=== PATIENT | female | born 1985 | race Caucasian/White ===

== ENCOUNTER 2019-07-02 19:04 | Emergency (ER) | payer BC ==
[2019-07-02] MEDS ORDERED: Sodium Chloride 0.9% 1,000 ML IV ONE (19:25)
[2019-07-02] MEDS ORDERED: Morphine 4 MG/ML Syringe IVPUSH ONE (19:47)
[2019-07-02] MEDS ORDERED: Ondansetron 4 MG/2 ML SDV IVPUSH ONE (19:48)
[2019-07-02] MEDS ORDERED: Morphine 4 MG/ML Syringe IM ONE (19:56)
[2019-07-02] MEDS ORDERED: Ondansetron 4 MG Tab.DIS PO ONE (19:57)
[2019-07-02 20:47] LABS: BLOOD UREA NITROGEN,BUN 8 mg/dL (7.0-18.0); CARBON DIOXIDE,CO2 25.5 mmol/L (21.0-32.0); CHLORIDE,CL 102 mmol/L (98-107); GLUCOSE RANDOM 95 mg/dL (74-106); POTASSIUM,K 3.8 mmol/L (3.5-5.1); SODIUM,NA 138 mmol/L (136-145)
--- NOTE | 2019-07-02 21:02 | EDM.PDOC ---
ED HPI GENERAL MEDICAL PROBLEM - General Chief Complaint: Abdominal Pain Stated Complaint: ABDOMINAL PAIN Time Seen by Provider: 07/02/19 19:12 Source of Information: Reports: Patient History Limitations: Reports: No Limitations - History of Present Illness INITIAL COMMENTS - FREE TEXT/NARRATIVE: 33-year-old female 5 para 3 AB 1 approximately 12 weeks presents the emergency room with chief complaint of upper abdominal pain go ongoing for the past 2 months. Patient's states that she has pain all the time not related to eating. The patient has had nausea and vomiting. Patient denies fever. Patient denies travel or cough. Duration: Week(s): (Past 8 weeks) Location: Reports: Abdomen Severity: Moderate Improves with: Reports: None Worsens with: Reports: None Associated Symptoms: Reports: No Other Symptoms, Nausea/Vomiting Right Abdominal Pain Score (Numeric/FACES): 10 - Related Data Allergies Allergy/AdvReac Type Severity Reaction Status Date / Time No Known Allergies Allergy Verified 07/02/19 19:14 Home Meds: Home Meds Vit No.129/Iron/FA [ One Daily Tablet] 1 tab PO DAILY 11/23/17 [History] Past Medical History HEENT History: Reports: None Cardiovascular History: Reports: None Respiratory History: Reports: None Gastrointestinal History: Reports: None Genitourinary History: Reports: None LOT ASSOCIATE History: Reports: , Other (See Below) Other LOT ASSOCIATE History: demise last year. Musculoskeletal History: Reports: None Psychiatric History: Reports: None Endocrine/Metabolic History: Reports: None Hematologic History: Reports: None Immunologic History: Reports: None Oncologic (Cancer) History: Reports: None Dermatologic History: Reports: None - Infectious Disease History Infectious Disease History: Reports: Chicken Pox - Past Surgical History Head Surgeries/Procedures: Reports: None HEENT Surgical History: Reports: Adenoidectomy, Myringotomy w Tube(s) Cardiovascular Surgical History: Reports: None Respiratory Surgical History: Reports: None GI Surgical History: Reports: None Female Surgical History: Reports: None Endocrine Surgical History: Reports: None Neurological Surgical History: Reports: None Musculoskeletal Surgical History: Reports: None Oncologic Surgical History: Reports: None Dermatological Surgical History: Reports: None Social & Family History - Family History HEENT: Reports: None Cardiac: Reports: None Respiratory: Reports: Asthma GI: Reports: None : Reports: None OBGYN: Reports: Fibroids, Musculoskeletal: Reports: None Neurological: Reports: None Psychiatric: Reports: None Endocrine/Metabolic: Reports: Hypothyroidism Hematologic: Reports: None Immunologic: Reports: None Dermatologic: Reports: None - Tobacco Use Smoking Status *Q: Never Smoker - Caffeine Use Caffeine Use: Reports: None - Recreational Drug Use Recreational Drug Use: No ED ROS GENERAL - Review of Systems Review Of Systems: See Below Constitutional: Reports: No Symptoms. Denies: Fever, Chills HEENT: Reports: No Symptoms. Denies: Contact Lenses, Eye Discharge, Eye Pain Respiratory: Reports: No Symptoms. Denies: Shortness of Breath, Cough, Sputum Cardiovascular: Reports: No Symptoms Endocrine: Reports: No Symptoms. Denies: Fatigue, High Glucose GI/Abdominal: Reports: No Symptoms. Denies: Abdominal Pain, Anorexia, Black Stool, Constipation, Diarrhea : Reports: No Symptoms. Denies: Discharge, Dysuria Musculoskeletal: Reports: No Symptoms. Denies: Neck Pain, Shoulder Pain Skin: Reports: No Symptoms. Denies: Cyanosis, Jaundice, Bruising Neurological: Reports: No Symptoms. Denies: Confusion, Dizziness Psychiatric: Reports: No Symptoms. Denies: Agitation, Anxiety, Confusion Hematologic/Lymphatic: Reports: No Symptoms. Denies: Anemia, Easy Bleeding Immunologic: Reports: No Symptoms. Denies: Anaphylaxis, Food Allergy, Grass Allergy ED EXAM, GI/ABD - Physical Exam Exam: See Below Text/Narrative:: This is a 33-year-old female 5 para 3 AB 1 who presents to the emergency room with a chief complaint of upper abdominal pain for the past 8 weeks On exam HEENT is normal Chest patient has normal S1-S2 Lungs are clear to auscultation throughout Abdomen Patient has epigastric tenderness. Patient has a questionable Tong sign. Patient has normal active bowel sounds. Patient has no rebound no guarding. Patient has no pain over the uterus. Patient has no flank tenderness or pain over the bladder. Patient appears to have biliary colic or gallbladder disease and will have ultrasounds of the gallbladder. Since the patient is 12 weeks will also have pelvic ultrasound to rule out any problems Exam Limited By: No Limitations General Appearance: Alert, WD/WN, No Apparent Distress Eyes: Bilateral: Normal Appearance Ears: Normal External Exam, Normal Canal, Hearing Grossly Normal, Normal TMs Nose: Normal Inspection, Normal Mucosa Throat/Mouth: Normal Inspection, Normal Lips, Normal Oropharynx Head: Atraumatic, Normocephalic Neck: Normal Inspection, Supple, Non-Tender Respiratory/Chest: No Respiratory Distress, Lungs Clear, Normal Breath Sounds, No Accessory Muscle Use Cardiovascular: Normal Peripheral Pulses, Regular Rate, Rhythm GI/Abdominal Exam: Normal Bowel Sounds, Soft, Tender (Epigastric tenderness). No: Abnormal Bowel Sounds, Hernia (She has a positive Tong sign) (Female) Exam: Deferred Rectal (Female) Exam: Deferred Back Exam: Normal Inspection Extremities: Normal Inspection, Normal Range of Motion Neurological: Alert, Oriented, CN II-XII Intact, Normal Cognition Psychiatric: Normal Affect, Normal Mood Skin Exam: Warm, Dry, Intact, Normal Color Lymphatic: No Adenopathy Course - Vital Signs Text/Narrative:: The emergency room course: This patient presents to the emergency room with epigastric pain that is been going on for the past 8 weeks. Patient has been followed up with her career consultant since she is 12 weeks they suggest that it is probably benign but to prompt come to the emergency room if she has the pain again. Patient presented with the pain today lasting for the past 4 hours. Pain is described as epigastric in nature and burning. Patient denies any pelvic pain or lower abdominal pain or any flank tenderness. Patient has no vaginal bleeding or discharge at this time. On exam patient had pain localized to the epigastric area only with a questionable historian. Patient was medicine at the time and the pain subsided. Patient was taken for ultrasound of the pelvis and gallbladder. The gallbladder ultrasound was completely normal. Patient's pelvic ultrasound shows an 11-week 4-day old fetus with no abnormality with a heart rate of 168 with good amniotic fluid. Reevaluation patient is pain-free at this time. Patient will be discharged home to follow-up with her career consultant with a diagnosis of gastritis probably secondary to . Patient instructed to follow-up with a primary care career consultant and take either Tums or Tylenol for pain Last Recorded V/S: Last Vital Signs Temp 97.8 F 07/02/19 19:14 Pulse 74 07/02/19 19:14 Resp 17 07/02/19 19:14 BP 121/91 H 07/02/19 19:14 Pulse Ox 100 07/02/19 19:14 - Orders/Labs/Meds Orders: Active Orders 24 hr Category Date Time Status CULTURE URINE [RM] Stat Lab 07/02/19 20:17 Received Labs: Laboratory Tests 07/02/19 07/02/19 07/02/19 Range/Units 20:17 20:17 20:17 WBC 7.22 (4.0-11.0) K/uL RBC 4.70 (4.30-5.90) M/uL Hgb 12.7 (12.0-16.0) g/dL Hct 39.2 (36.0-46.0) % MCV 83.4 (80.0-98.0) fL MCH 27.0 (27.0-32.0) pg MCHC 32.4 (31.0-37.0) g/dL RDW Std Deviation 40.1 (28.0-62.0) fl RDW Coeff of Giovany 13 (11.0-15.0) % Plt Count 149 L (150-400) K/uL MPV 9.50 (7.40-12.00) fL Neut % (Auto) 68.1 (48.0-80.0) % Lymph % (Auto) 26.2 (16.0-40.0) % [place] % (Auto) 4.4 (0.0-15.0) % Eos % (Auto) 1.2 (0.0-7.0) % Baso % (Auto) 0.1 (0.0-1.5) % Neut # (Auto) 4.9 (1.4-5.7) K/uL Lymph # (Auto) 1.9 (0.6-2.4) K/uL [place] # (Auto) 0.3 (0.0-0.8) K/uL Eos # (Auto) 0.1 (0.0-0.7) K/uL Baso # (Auto) 0.0 (0.0-0.1) K/uL Nucleated RBC % 0.0 /100WBC Nucleated RBCs # 0 K/uL Sodium 138 (136-145) mmol/L Potassium 3.8 (3.5-5.1) mmol/L Chloride 102 (98-107) mmol/L Carbon Dioxide 25.5 (21.0-32.0) mmol/L BUN 8 (7.0-18.0) mg/dL Creatinine 0.7 (0.6-1.0) mg/dL Est Cr Clr Drug Dosing 128.96 mL/min Estimated GFR (MDRD) > 60.0 ml/min Glucose 95 (74-106) mg/dL Calcium 8.9 (8.5-10.1) mg/dL Total Bilirubin 0.4 (0.2-1.0) mg/dL AST 17 (15-37) IU/L ALT 21 (14-63) IU/L Alkaline Phosphatase 61 (46-116) U/L Total Protein 7.1 (6.4-8.2) g/dL Albumin 3.6 (3.4-5.0) g/dL Globulin 3.5 (2.6-4.0) g/dL Albumin/Globulin Ratio 1.0 (0.9-1.6) Urine Color YELLOW Urine Appearance CLOUDY Urine pH 6.0 (5.0-8.0) Ur Specific [place] 1.015 (1.001-1.035) Urine Protein NEGATIVE (NEGATIVE) mg/dL Urine Glucose (UA) NEGATIVE (NEGATIVE) mg/dL Urine Ketones TRACE H (NEGATIVE) mg/dL Urine Occult Blood NEGATIVE (NEGATIVE) Urine Nitrite NEGATIVE (NEGATIVE) Urine Bilirubin NEGATIVE (NEGATIVE) Urine Urobilinogen 0.2 (<2.0) EU/dL Ur Leukocyte Esterase LARGE H (NEGATIVE) Urine RBC 0-2 (0-2/HPF) Urine WBC 15-20 (0-5/HPF) Ur Epithelial Cells MODERATE (NONE-FEW) Urine Bacteria 1+ H (NEGATIVE) Urine Mucus LIGHT (NONE-MOD) Meds: Medications Discontinued Medications Generic Name Dose Route Start Last Admin Trade Name Freq PRN Reason Stop Dose Admin Sodium Chloride 1,000 mls @ 1,000 mls/hr 07/02/19 19:25 07/02/19 21:22 Normal Saline IV 07/02/19 20:24 Not Given .Bolus ONE Morphine Sulfate 4 mg 07/02/19 19:47 07/02/19 20:25 Morphine IVPUSH 07/02/19 19:48 Not Given ONETIME ONE Morphine Sulfate 4 mg 07/02/19 19:56 07/02/19 20:06 Morphine IM 07/02/19 19:57 4 mg ONETIME ONE Administration Ondansetron HCl 4 mg 07/02/19 19:48 07/02/19 20:25 Zofran IVPUSH 07/02/19 19:49 Not Given ONETIME ONE Ondansetron HCl 4 mg 07/02/19 19:57 07/02/19 20:06 Zofran Odt PO 07/02/19 19:58 4 mg ONETIME ONE Administration Departure - Departure Time of Disposition: 21:29 Disposition: Home, Self-Care 01 Condition: Good Clinical Impression: Gastritis Qualifiers: Gastritis type: other gastritis Qualified Code(s): K29.00 - Acute gastritis without bleeding - Discharge Information Instructions: Gastritis, Adult, [id number] Referrals: Nicole Alvarez MD [Primary Care Provider] - Forms: ED Department Discharge Sepsis Event Note - Evaluation Sepsis Screening Result: No Definite Risk - Focused Exam Vital Signs: Vital Signs Temp Pulse Resp BP Pulse Ox 07/02/19 19:14 97.8 F 74 17 121/91 H 100 Date Exam was Performed: 07/02/19 Time Exam was Performed: 21:25
--- NOTE | 2019-07-02 21:04 | US ---
Limited abdominal ultrasound: Multiple real-time images of the upper right abdomen were obtained. Gallbladder shows no shadowing gallstones. No gallbladder wall thickening or biliary duct dilatation is seen. Right kidney shows no hydronephrosis or discrete mass. Right kidney has a length of 12.3 cm. No abnormality is identified within the liver. Normal hepatopedal flow is seen within the main portal vein. Pancreas shows partial obscuration from bowel gas. Visualized portions of the pancreas appear within normal limits. Impression: 1. No abnormality is identified on right upper quadrant abdominal ultrasound as described above. Diagnostic code #1 This report was dictated in MDT
--- NOTE | 2019-07-02 21:04 | US ---
1st trimester obstetrical ultrasound: Multiple real-time images were obtained transabdominally. Comparison: No previous study for current . Dates: Current ultrasound: KELLI 01/17/20, gestational age 11 weeks 4 days Single intrauterine gestation is seen. Small embryo is identified. Amniotic fluid volume is normal. No subchorionic hemorrhage is appreciated. Maternal ovaries are identified and appear within normal limits. [place]-rump length: 4.76 cm - 11 weeks 4 days Heart rate: 168 bpm Single intrauterine gestation. Dates as noted above. 2. No complicating process is identified by ultrasound. Diagnostic code #1 This report was dictated in MDT
[2019-07-02 21:45] VITALS: BP 115/62; PULSE 73
== END 2019-07-02 21:44 | disposition home or self-care (01) ==
LOC: MW.ED 19:04
DX: O99.611 Diseases of the digestive system complicating pregnancy, first trimester (principal); K29.00 Acute gastritis without bleeding; Z3A.12 12 weeks gestation of pregnancy
CPT/HCPCS: 36415; 76705; 76801; 80053; 81001; 85025; 87086; 96372; 99284; A9270; J2270; 99283

== ENCOUNTER 2020-01-09 17:37 | Inpatient (IN) | payer BC ==
[2020-01-09] MEDS ORDERED: Terbutaline 1 MG/ML SDV SUBCUT PRN (17:59)
[2020-01-09] MEDS ORDERED: Oxytocin/0.9 % Sodium Chloride 30 UNIT/500 ML BAG IV SCH ×2 (18:00→18:15)
[2020-01-09] MEDS ORDERED: Methylergonovine 0.2 MG/1 ML Amp IM PRN (18:03)
[2020-01-09] MEDS ORDERED: Misoprostol 200 MCG Tab PO PRN (18:03)
[2020-01-09] MEDS ORDERED: Water For Irrigation,Sterile 1,000 ML Container IRR PRN (18:03)
[2020-01-09] MEDS ORDERED: Carboprost Tromethamine 250 MCG/1 ML Amp IM PRN (18:03)
[2020-01-09] MEDS ORDERED: Ondansetron 4 MG/2 ML SDV IVPUSH PRN (18:03)
[2020-01-09] MEDS ORDERED: Nalbuphine 10 MG/1 ML Vial IVPUSH PRN (18:03)
[2020-01-09] MEDS ORDERED: Tranexamic Acid 1,000 MG in Sodium Chloride 0.9% 100 ML IV PRN (18:03)
[2020-01-09] MEDS ORDERED: Butorphanol 1 MG/ML SDV IVPUSH PRN (18:03)
[2020-01-09] MEDS ORDERED: Sodium Chloride 0.9% 10 ML Syringe FLUSH PRN (18:03)
[2020-01-09] MEDS ORDERED: Lidocaine 1% 50 ML MDV INJECT PRN (18:03)
[2020-01-09] MEDS ORDERED: Sodium Chloride 0.9% 10 ML SDV IV PRN (18:03)
[2020-01-09] MEDS ORDERED: Sodium Chloride 0.9% 2.5 ML Syringe FLUSH PRN (18:03)
[2020-01-09] MEDS ORDERED: Lactated Ringers 1,000 ML IV SCH (18:15)
[2020-01-09] MEDS ORDERED: Calcium Carbonate 500 MG Tab.Chew PO PRN (20:42)
[2020-01-10] MEDS: Misoprostol 25 MCG (1/4 of 100 MCG) Tab VAG PRN ×2 (00:14→04:28)
[2020-01-10] MEDS ORDERED: Ibuprofen 400 MG Tab PO PRN (10:33)
[2020-01-10] MEDS ORDERED: oxyCODONE 5 MG Tab PO PRN (10:33)
[2020-01-10] MEDS ORDERED: Lanolin 100% Cream 7 GM Tube TOP PRN (10:33)
[2020-01-10] MEDS ORDERED: Bisacodyl 10 MG Supp RECTAL PRN (10:33)
[2020-01-10] MEDS ORDERED: Acetaminophen 500 MG Tab PO PRN (10:33)
--- NOTE | 2020-01-10 10:37 | PCM.OPNOTE ---
- General Post-Op/Procedure Note Date of Surgery/Procedure: 01/10/20 Operative Procedure(s): /2nd MLL repaired Findings: Viable female APGARs 8, 9 weight 2900 gm. Spontaneous delivery intact placenta with 3V cord Pre Op Diagnosis: 39 week IUP. IUGR, AC <10%ile Post-Op Diagnosis: Same Anesthesia Technique: Local Primary Surgeon: Nicole Alvarez EBL in mLs: 300 Complications: none known Condition: Good
[2020-01-10] MEDS: Benzocaine/Menthol 20%-0.5% Spray 78 GM Cannister TOP PRN (10:48)
[2020-01-10] MEDS: Witch Hazel Medicated Pads 40/Jar TOP PRN (10:48)
[2020-01-10] MEDS: Acetaminophen 500 MG Tab PO PRN ×3 (10:49→23:08)
--- NOTE | 2020-01-10 13:47 | OR ---
SURGEON: Nicole Alvarez M.D. DATE OF PROCEDURE: 01/10/2020 PREOPERATIVE DIAGNOSES: 1. 39-1/7 weeks' intrauterine . 2. Intrauterine growth restriction with abdominal circumference measuring less than 10th percentile. POSTOPERATIVE DIAGNOSES: 1. 39-1/7 weeks' intrauterine . 2. Intrauterine growth restriction with abdominal circumference measuring less than 10th percentile. PROCEDURE: Spontaneous vaginal delivery. Second-degree midline laceration, repaired. PRIMARY SURGEON: Nicole Alvarez MD ANESTHESIA: Local. ESTIMATED BLOOD LOSS: 300 mL. COMPLICATIONS: None known. FINDINGS: Viable female. score of 8 at one minute, 9 at five minutes. Weight of 2900 g. Spontaneous delivery, intact placenta, 3-vessel cord. DISPOSITION: to nursery, mom in LDRP. PROCEDURE DETAILS: Rashmi is a 34-year-old, G5, P 3-0-1-3, at 39-1/7 weeks' gestational age who presented on the evening of for scheduled induction of labor due to growth restriction with abdominal circumference of fetus measuring less than 10th percentile. Initially, she was started on Pitocin, but she was only found to be 1 cm, 50% effaced, minus 3 station. heart tones were category 1. She did not become very uncomfortable throughout the evening hours. Therefore, shortly after 11, Pitocin was discontinued and was dosed with Cytotec to help with ripening. She received two doses of this. This she responded very nicely to. The following morning, she was found to be 2 cm, 70% effaced, minus 3 station with spontaneous rupture of membranes shortly after 6 a.m., clear fluid was noted. The patient continued to progress. Shortly after 9, she was found to be 5 to 6 cm and within the next hour progressed to complete with urge to push. I presented for delivery. The patient was placed in modified dorsal lithotomy position. She was prepped and draped in usual aseptic manner. Began pushing efforts, was able to deliver 's head atraumatically spontaneously, followed by anterior shoulder, posterior shoulder, remainder of body. Infant's oropharynx and nares were bulb suctioned. was handed off to her mother with attending nursing staff at the side. After a delay, cord was clamped x2 and cut. The cord arterial, cord venous, cord blood sampling obtained. Light pressure was applied while the placenta was delivered spontaneously intact. Vigorous fundal uterine massage was then applied while 30 units of Pitocin was delivered in 500 mL of IV fluid. Upon inspection of cervix, vaginal sidewall, and perineum, the patient has had fairly significant laceration. Therefore, there is a laceration along the right vaginal sidewall. Region was prepped with 10 mL of 1% lidocaine and repaired using 3-0 Vicryl in continuous running fashion. There was also a deeper tear where she usually tears along the midline along the levator muscle. The capsule was not entered, so the overlying tissue was reapproximated with two [id number] sutures. Hemostasis appeared evident. Repair was intact. The patient tolerated this well overall. She will remain in LDRP, to nursery. Sponge and instrument count was correct. GIBSON / DIANA /[id number]
[2020-01-10] MEDS: Ibuprofen 800 MG Tab PO PRN ×2 (15:00→21:22)
--- NOTE | 2020-01-10 20:05 | PCM.SN.2 ---
- Free Text/Narrative Note: Called by patient nurse that her right labia has been very swollen since delivery. Inferior right labia has hematoma measuring about 5cm x4cm at the site of labial laceration extending towards perineum. Has not significantly increased in size the past 5 hours. She has moderate tenderness but was able to ambulate and void. She reports usually has bad swelling after her deliveries due to previous OB trauma. Hematoma appears stable at this time, will apply ice pack overnight and monitor size closely. Repeat CBC in AM.
[2020-01-10] MEDS: Docusate Sodium 100 MG Cap PO PRN (21:22)
[2020-01-11] MEDS: Ibuprofen 800 MG Tab PO PRN ×2 (04:32→12:24)
[2020-01-11 09:32] VITALS: BP 119/56; PULSE 69
[2020-01-11] MEDS: Acetaminophen 500 MG Tab PO PRN ×2 (09:46→14:27)
[2020-01-11] MEDS: Docusate Sodium 100 MG Cap PO PRN (09:47)
--- NOTE | 2020-01-11 11:21 | PCM.PNPP ---
- General Info Date of Service: 01/11/20 Functional Status: Reports: Pain Controlled, Tolerating Diet, Ambulating, Urinating, Other (Right labia hematoma stable in size, reports pain improving. ) - Review of Systems General: Reports: No Symptoms HEENT: Reports: No Symptoms Pulmonary: Reports: No Symptoms Cardiovascular: Reports: No Symptoms Gastrointestinal: Reports: No Symptoms Genitourinary: Reports: No Symptoms Musculoskeletal: Reports: No Symptoms Skin: Reports: No Symptoms Neurological: Reports: No Symptoms Psychiatric: Reports: No Symptoms - Patient Data Vital Signs - Most Recent: Last Vital Signs Temp 36.4 C 01/11/20 08:00 Pulse 69 01/11/20 08:00 Resp 14 01/11/20 08:00 BP 119/56 L 01/11/20 08:00 Pulse Ox 96 01/11/20 08:00 Weight - Most Recent: 280 lb Lab Results - Last 24 Hours: Laboratory Results - last 24 hr 01/10/20 01/11/20 Range/Units 20:16 06:08 WBC 11.87 H (4.0-11.0) K/uL RBC 3.94 L (4.30-5.90) M/uL Hgb 10.8 L 9.8 L (12.0-16.0) g/dL Hct 33.6 L 30.5 L (36.0-46.0) % MCV 85.3 (80.0-98.0) fL MCH 27.4 (27.0-32.0) pg MCHC 32.1 (31.0-37.0) g/dL RDW Std Deviation 45.2 (28.0-62.0) fl RDW Coeff of Giovany 14 (11.0-15.0) % Plt Count 148 L (150-400) K/uL MPV 9.20 (7.40-12.00) fL Nucleated RBC % 0.0 /100WBC Nucleated RBCs # 0 K/uL Med Orders - Current: Current Medications Acetaminophen (Tylenol Extra Strength) 500 mg PO Q4H PRN PRN Reason: Pain Acetaminophen (Tylenol Extra Strength) 1,000 mg PO Q4H PRN PRN Reason: Pain Last Admin: 01/11/20 09:46 Dose: 1,000 mg Documented by: Benzocaine/Menthol (Dermoplast Pain Relief 20%-0.5% [place]) 78 gm TOP ASDIRECTED PRN PRN Reason: Perineal Comfort Measure Last Admin: 01/10/20 10:48 Dose: 1 can Documented by: Bisacodyl (Dulcolax) 10 mg RECTAL ONETIME PRN PRN Reason: Constipation Calcium Carbonate/Glycine (Tums) 1,000 mg PO Q2HR PRN PRN Reason: Indigestion Last Admin: 01/09/20 21:11 Dose: 1,000 mg Documented by: Carboprost Tromethamine (Hemabate Ds) 250 mcg IM ASDIRECTED PRN PRN Reason: Post Hemorrhage Docusate Sodium (Colace) 100 mg PO BID PRN PRN Reason: Constipation Last Admin: 01/11/20 09:47 Dose: 100 mg Documented by: Emollient Ointment (Lansinoh Hpa) 0 gm TOP ASDIRECTED PRN PRN Reason: Sore Nipples Last Admin: 01/11/20 09:47 Dose: 7 gm Documented by: Oxytocin/Sodium Chloride (Oxytocin 30 Unit/500 Ml-Ns) 30 unit in 500 mls @ 2 mls/hr IV TITRATE AGUSTÍN; Protocol Last Titration: 01/10/20 10:05 Dose: 999 munits/min, 999 mls/hr Documented by: Lactated Ringer's (Ringers, Lactated) 1,000 mls @ 150 mls/hr IV ASDIRECTED AGUSTÍN Last Admin: 01/09/20 18:25 Dose: 150 mls/hr Documented by: Oxytocin/Sodium Chloride (Oxytocin 30 Unit/500 Ml-Ns) 30 unit in 500 mls @ 999 mls/hr IV TITRATE AGUSTÍN Tranexamic Acid 1,000 mg/ (Sodium Chloride) 110 mls @ 660 mls/hr IV ONETIME PRN PRN Reason: Bleeding Ibuprofen (Motrin) 400 mg PO Q4H PRN PRN Reason: Pain Ibuprofen (Motrin) 800 mg PO Q6H PRN PRN Reason: Pain Last Admin: 01/11/20 04:32 Dose: 800 mg Documented by: Lidocaine HCl (Xylocaine 1%) 50 ml INJECT ONETIME PRN PRN Reason: Laceration repair Last Admin: 01/10/20 10:13 Dose: 50 ml Documented by: Methylergonovine Maleate (Methergine) 0.2 mg IM ASDIRECTED PRN PRN Reason: Post Hemorrhage Misoprostol (Cytotec) 200 mcg PO ONETIME PRN PRN Reason: Post Hemorrhage Ondansetron HCl (Zofran) 4 mg IVPUSH Q6H PRN PRN Reason: Nausea/Vomiting Oxycodone HCl (Oxycodone) 5 mg PO Q2H PRN PRN Reason: Pain Sodium Chloride (Saline Flush) 10 ml FLUSH ASDIRECTED PRN PRN Reason: Keep Vein Open Sodium Chloride (Saline Flush) 2.5 ml FLUSH ASDIRECTED PRN PRN Reason: Keep Vein Open Sodium Chloride (Normal Saline) 10 ml IV ASDIRECTED PRN PRN Reason: IV Use Sterile Water (Sterile Water For Irrigation) 1,000 ml IRR ASDIRECTED PRN PRN Reason: delivery Wittimmy Godwin (Tucks) 1 pad TOP ASDIRECTED PRN PRN Reason: comfort care Last Admin: 01/10/20 10:48 Dose: 1 tub Documented by: Discontinued Medications Butorphanol Tartrate (Stadol) 1 mg IVPUSH Q1H PRN PRN Reason: Pain Misoprostol (Cytotec) 25 mcg VAG Q4H PRN PRN Reason: Cervical Ripening Last Admin: 01/10/20 04:28 Dose: 25 mcg Documented by: Nalbuphine HCl (Nubain) 10 mg IVPUSH Q1H PRN PRN Reason: Pain (severe 7-10) Terbutaline Sulfate (Brethine) 0.25 mg SUBCUT ASDIRECTED PRN PRN Reason: Tacysystole - Infant Interaction Disposition, : [place] at Bedside Interaction: Holding Infant Feeding: Breastfed Infant; Nursed Well Support Person: - Recovery Exam Fundal Tone: Firm Fundal Level: 1 Fingerbreadths Below Umbilicus Fundal Placement: Midline Lochia Amount: Scant, Small Lochia Color: Rubra/Red Perineum Description: Intact, Minimal Bruising/Swelling Episiotomy/Laceration: Approximated Bladder Status: Voiding - Exam General: Alert, Oriented, Cooperative, No Acute Distress HEENT: Pupils Equal, Pupils Reactive Neck: Supple, Trachea Midline Lungs: Normal Respiratory Effort Extremities: Normal Inspection, Normal Range of Motion, Non-Tender, No Pedal Edema Skin: Warm, Dry, Intact Wound/Incisions: Other (Right labial hematoma stable in size, about 4x5cm, swelling extending to the perineum.) Neurological: No New Focal Deficit Psy/Mental Status: Alert, Normal Affect, Normal Mood - Problem List & Annotations (1) Vaginal hematoma Status: Acute Current Visit: Yes - Problem List Review Problem List Initiated/Reviewed/Updated: Yes - My Orders Last 24 Hours: My Active Orders 01/11/20 11:09 Ready for Discharge [RC] PER UNIT ROUTINE - Assessment Assessment:: 34yo PPD1 s/p with right labial hematoma. - Plan Plan:: - vital stable - Hematoma stable in size, pain is improving. Motrin and tylenol PRN - Hgb 11.5 on admission, 10.8/9.8 , decrease appropriate for - Stable for discharge home, reviewed to continue compression ice packs and sitz baths to help swelling. To call if increasing in size, bleeding or pain. Follow up in clinic next week.
[2020-01-11] MEDS: Witch Hazel Medicated Pads 40/Jar TOP PRN (14:26)
[2020-01-11] MEDS: Benzocaine/Menthol 20%-0.5% Spray 78 GM Cannister TOP PRN (14:27)
== END 2020-01-11 15:00 | disposition home or self-care (01) | DRG 560 ==
LOC: MW.OB 17:37 → OBSVTOIN 01-10 10:34 → MW.OB 01-10 15:11
PROVIDERS: ADMIT Obstetrics & Gynecology; ATTEND Obstetrics & Gynecology
PROC: 10E0XZZ Delivery of Products of Conception, External Approach (ICD-10-PCS; principal; 2020-01-10)
PROC: 0KQM0ZZ Repair Perineum Muscle, Open Approach (ICD-10-PCS; 2020-01-10)
DX: O36.5930 Maternal care for other known or suspected poor fetal growth, third trimester, not applicable or unspecified (principal); Z37.0 Single live birth; Z3A.39 39 weeks gestation of pregnancy; O70.1 Second degree perineal laceration during delivery; Z20.828 Contact with and (suspected) exposure to other viral communicable diseases
CPT/HCPCS: 36415; 59025; 59409; 82803; 85014; 85018; 85027; 86592; 86850; 86900; 86901; A9270-GY; J2001; J2590; J7120; U0002

== ENCOUNTER 2020-01-15 04:55 | Emergency (ER) | payer BC ==
--- NOTE | 2020-01-15 05:13 | EDM.PDOC ---
ED HPI GENERAL MEDICAL PROBLEM - General Chief Complaint: Lower Extremity Injury/Pain Stated Complaint: LT LEG HURTS Time Seen by Provider: 01/15/20 05:05 - History of Present Illness INITIAL COMMENTS - FREE TEXT/NARRATIVE: History of present illness: [] The patient noticed swelling in her left leg with pain in her calf. She had a baby a few days ago. She has no history of thromboembolic disease. She has had prior babies with no problems. She is not on control or hormones. She does not smoke. She has not had any recent surgery but she did have and has not been out of bed much since. There is no family history of thromboembolic disease. No fever chills or systemic signs of illness. Review of systems: As per history of present illness and below otherwise all systems reviewed and negative. Past medical history: As per history of present illness and as reviewed below otherwise noncontributory. Surgical history: As per history of present illness and as reviewed below otherwise noncontribut ory. Social history: No reported history of drug or alcohol abuse. Family history: As per history of present illness and as reviewed below otherwise noncontributory. Physical exam: Constitutional - well developed, well-nourished and in no acute distress HEENT - normocephalic, no evidence of trauma - external nose and mouth normal - no mass in neck and no JVD - mucosae moist EYES - full EOM, PERRL, no icterus - no evidence of inflammation, injection, or drainage Respiratory - no respiratory distress, equal bilateral expansion, lungs clear to auscultation and no abnormal lung sounds Cardiovascular - Regular Rhythm with S1 and S2 appreciated and no murmur, gallop or rub. GI - abdomen soft without distension or organomegaly - normal bowel sounds - no guard or rebound Musculoskeletal distal left calf otherwise no gross deformity of long bones or joints - no tenderness, swelling or edema Neurologic - Alert and oriented times four - CN II-XII grossly intact - motor sensory and coordination symmetrically normal Psychiatric - appropriate mood and affect with normal thought content Hematologic - No petechiae or purpura - mucosa appropriate color and sclera not pale - normal nail bed color and refill Integument - no rash or evidence of trauma - normal turgor Diagnostics: [] Therapeutics: [] Impression: [] Plan: [] Definitive disposition and diagnosis as appropriate pending reevaluation and review of above. Left Lower Leg Pain Score (Numeric/FACES): 2 - Related Data Allergies Allergy/AdvReac Type Severity Reaction Status Date / Time No Known Allergies Allergy Verified 01/09/20 17:54 Home Meds: Home Meds Vit No.129/Iron/FA [ One Daily Tablet] 1 tab PO DAILY 11/23/17 [History] Acetaminophen [Tylenol Extra Strength] 1,000 mg PO Q6HR PRN tablet 01/11/20 [Rx] Docusate Sodium [Colace] 100 mg PO BID PRN cap 01/11/20 [Rx] Ibuprofen [Motrin] 800 mg PO Q8HR PRN tablet 01/11/20 [Rx] Past Medical History HEENT History: Reports: Impaired Vision Cardiovascular History: Reports: None Respiratory History: Reports: None Gastrointestinal History: Reports: None Genitourinary History: Reports: None 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 Musculoskeletal History: Reports: Arthritis Neurological History: Reports: Other (See Below) Other Neuro History: brain contusion Psychiatric History: Reports: None Endocrine/Metabolic History: Reports: None Hematologic History: Reports: None Immunologic History: Reports: None Oncologic (Cancer) History: Reports: None Dermatologic History: Reports: None - Infectious Disease History Infectious Disease History: Reports: Chicken Pox - Past Surgical History HEENT Surgical History: Reports: Adenoidectomy, Myringotomy w Tube(s) Neurological Surgical History: Reports: None Musculoskeletal Surgical History: Reports: None Social & Family History - Family History HEENT: Reports: None Cardiac: Reports: None Respiratory: Reports: Asthma GI: Reports: Other (See Below) Other GI Family History: crohn's disease : Reports: None OBGYN: Reports: Fibroids, Musculoskeletal: Reports: Arthritis Neurological: Reports: Migraines Psychiatric: Reports: None Endocrine/Metabolic: Reports: Diabetes, type II, Other (See Below) Other Endocrine/Metabolic Family History: thyroid disease Hematologic: Reports: None Immunologic: Reports: None Dermatologic: Reports: None Oncologic: Reports: Brain, Skin - Tobacco Use Smoking Status *Q: Never Smoker - Caffeine Use Caffeine Use: Reports: None - Recreational Drug Use Recreational Drug Use: No Review of Systems - Review of Systems Review Of Systems: Comprehensive ROS is negative, except as noted in HPI. ED EXAM, GENERAL - Physical Exam Exam: See Below Free Text/Narrative:: Physical exam as in the HPI Course - Vital Signs Last Recorded V/S: Last Vital Signs Temp 96.8 F L 01/15/20 04:57 Pulse 78 01/15/20 04:57 Resp 18 01/15/20 04:57 BP 137/76 01/15/20 04:57 Pulse Ox 96 01/15/20 04:57 Departure - Departure Time of Disposition: 06:19 Disposition: Home, Self-Care 01 Condition: Good Clinical Impression: Calf pain - Discharge Information Instructions: Muscle Strain, [id number] Referrals: PCP,None [Primary Care Provider] - Forms: ED Department Discharge Additional Instructions: [facility] - Primary [facility] [address] [place] [id number] [facility] [address] [place] [id number] The following information is given to patients seen in the emergency department who are being discharged to home. This information is to outline your options for follow-up care. We provide all patients seen in our emergency department with a follow-up referral. The need for follow-up, as well as the timing and circumstances, are variable de pending upon the specifics of your emergency department visit. If you don't have a primary care physician on staff, we will provide you with a referral. We always advise you to contact your personal physician following an emergency department visit to inform them of the circumstance of the visit and for follow-up with them and/or the need for any referrals to a consulting specialist. The emergency department will also refer you to a specialist when appropriate. This referral assures that you have the opportunity for follow-up care with a specialist. All of these measure are taken in an effort to provide you with optimal care, which includes your follow-up. Under all circumstances we always encourage you to contact your private physician who remains a resource for coordinating your care. When calling for follow-up care, please make the office aware that this follow-up is from your recent emergency room visit. If for any reason you are refused follow-up, please contact the [facility] Emergency Department at and asked to speak to the emergency department charge nurse. Sepsis Event Note (ED) - Evaluation Sepsis Screening Result: No Definite Risk - Focused Exam Vital Signs: Vital Signs Temp Pulse Resp BP Pulse Ox 01/15/20 04:57 96.8 F L 78 18 137/76 96
--- NOTE | 2020-01-15 06:07 | US ---
INDICATION: , leg swelling and pain left calf TECHNIQUE: Ultrasound venous duplex left lower extremity. Langley-scale, color Doppler, and spectral Doppler imaging were performed with compression and augmentation. COMPARISON: None FINDINGS: Deep veins: The left common femoral, femoral, popliteal, and visualized calf veins are fully compressible, demonstrate normal color flow, and normal response to mechanical augmentation. The Duplex Doppler waveforms are normal in appearance. Superficial veins: The visualized greater saphenous and superficial veins of the leg and calf are unremarkable. Soft tissue: No masses or cysts are identified. No adenopathy is seen. IMPRESSION: 1. No sonographic evidence of acute deep venous thrombosis seen. Dictated by: Destin Nair MD @ 01/15/2020 06:05:01 (Electronically Signed)
[2020-01-15 06:24] VITALS: BP 115/74; PULSE 63
== END 2020-01-15 06:30 | disposition home or self-care (01) ==
LOC: MW.ED 04:55
DX: M79.662 Pain in left lower leg (principal)
CPT/HCPCS: 93971-26-LT; 93971-LT; 99282; 99283-25

== ENCOUNTER 2021-03-11 09:15 | Day surgery (SDC) | payer BC ==
[~2021-03-11 09:15] MED LIST: Albuterol 0.083% 2.5 MG/3 ML Neb Soln NEB PRN; HYDROmorphone 1 MG/ML Syringe IVPUSH PRN; Lactated Ringers 1,000 ML IV SCH; Metoclopramide 10 MG/2 ML SDV IVPUSH PRN; Morphine 2 MG/ML SYRINGE IVPUSH PRN; Naloxone 0.4 MG/ML SDV IVPUSH PRN; Ondansetron 4 MG/2 ML SDV IVPUSH PRN; fentaNYL 100 MCG/2 ML SDV IVPUSH PRN
[2021-03-11] MEDS ORDERED: Scopolamine 1.5 MG Transdermal Patch ONE (09:21)
[2021-03-11] MEDS ORDERED: Propofol 200 MG/20 ML SDV ONE (09:26)
[2021-03-11] MEDS ORDERED: Lidocaine 2% 100 MG/5 ML Syringe ONE (09:26)
[2021-03-11] MEDS ORDERED: Midazolam 1 MG/ML 2 ML SDV ONE (09:27)
[2021-03-11] MEDS ORDERED: fentaNYL 100 MCG/2 ML SDV ONE (09:27)
[2021-03-11] MEDS ORDERED: Sugammadex Sodium 200 MG/2 ML VIAL ONE (09:28)
[2021-03-11] MEDS ORDERED: Dexamethasone 4 MG/ML 5 ML MDV ONE (09:28)
[2021-03-11] MEDS ORDERED: Ondansetron 4 MG/2 ML SDV ONE (09:28)
[2021-03-11] MEDS ORDERED: Lidocaine 2% 5 ML SDV ONE ×2 (09:28→09:40)
[2021-03-11] MEDS ORDERED: Rocuronium Bromide 50 MG/5 ML Syringe ONE (09:28)
--- NOTE | 2021-03-11 10:19 | PCM.PREANE ---
Preanesthetic Assessment - Anesthesia/Transfusion/Family Hx Anesthesia History: Prior Anesthesia Without Reaction Transfusion History: No Prior Transfusion(s) Type of Transfusion Reactions: Reports: Unknown - Review of Systems General: No Symptoms Pulmonary: No Symptoms Cardiovascular: No Symptoms Gastrointestinal: No Symptoms Neurological: No Symptoms Other: Reports: None - Physical Assessment NPO Status Date: 03/11/21 NPO Status Time: 00:00 Vital Signs: Last Vital Signs Temp 97.5 F 03/11/21 09:58 Pulse 72 03/11/21 09:58 Resp 16 03/11/21 09:58 BP 127/61 03/11/21 09:58 Pulse Ox 96 03/11/21 09:58 Height: 5 ft 11 in Weight: 278 lb ASA Class: 2 Mental Status: Alert & Oriented x3 Airway Class: Mallampati = 2 Dentition: Reports: Anson(s), Implants Thyro-Mental Finger Breadths: 3 Mouth Opening Finger Breadths: 3 ROM/Head Extension: Full Lungs: Clear to Auscultation, Normal Respiratory Effort Cardiovascular: Regular Rate, Regular Rhythm - Lab Values: Laboratory Last Values WBC 7.46 K/uL (4.0-11.0) 03/11/21 09:16 RBC 4.91 M/uL (4.30-5.90) 03/11/21 09:16 Hgb 13.2 g/dL (12.0-16.0) 03/11/21 09:16 Hct 40.3 % (36.0-46.0) 03/11/21 09:16 MCV 82.1 fL (80.0-98.0) 03/11/21 09:16 MCH 26.9 pg (27.0-32.0) L 03/11/21 09:16 MCHC 32.8 g/dL (31.0-37.0) 03/11/21 09:16 RDW Std Deviation 40.6 fl (28.0-62.0) 03/11/21 09:16 RDW Coeff of Giovany 14 % (11.0-15.0) 03/11/21 09:16 Plt Count 177 K/uL (150-400) 03/11/21 09:16 MPV 9.40 fL (7.40-12.00) 03/11/21 09:16 Nucleated RBC % 0.0 /100WBC 03/11/21 09:16 Nucleated RBCs # 0 K/uL 03/11/21 09:16 HCG, Qual NEGATIVE (NEG) 03/11/21 09:16 - Allergies Allergies/Adverse Reactions: Allergies Allergy/AdvReac Type Severity Reaction Status Date / Time No Known Allergies Allergy Verified 03/11/21 09:56 - Anesthesia Plan Pre-Op Medication Ordered: Other (scopolamine) - Acknowledgements Anesthesia Type Planned: General Anesthesia Pt an Appropriate Candidate for the Planned Anesthesia: Yes Alternatives and Risks of Anesthesia Discussed w Pt/Guardian: Yes Pt/Guardian Understands and Agrees with Anesthesia Plan: Yes PreAnesthesia Questionnaire HEENT History: Reports: None Cardiovascular History: Reports: Other (See Below) Other Cardiovascular History: "low bloodpressure" Respiratory History: Reports: None Gastrointestinal History: Reports: None Genitourinary History: Reports: None 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: , 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 (See Below) Other OB/BYN History: demise at 20 weeks in 2014 Musculoskeletal History: Reports: Arthritis Neurological History: Reports: Other (See Below) Other Neuro History: brain contusion in 2010 following syncopal episode in parking lot Psychiatric History: Reports: None Endocrine/Metabolic History: Reports: None Hematologic History: Reports: None Immunologic History: Reports: None Oncologic (Cancer) History: Reports: None Dermatologic History: Reports: None - Infectious Disease History Infectious Disease History: Reports: Chicken Pox - Past Surgical History Head Surgeries/Procedures: Reports: None HEENT Surgical History: Reports: Adenoidectomy, Myringotomy w Tube(s), Naso- Sinus Surgery Other HEENT Surgeries/Procedures: adenoidectomy Cardiovascular Surgical History: Reports: None Respiratory Surgical History: Reports: None GI Surgical History: Reports: None Female Surgical History: Reports: Other (See Below) Other Female Surgeries/Procedures: zara vulvar labioplasty 2006, post perineal repair May 24 2013, Endocrine Surgical History: Reports: None Neurological Surgical History: Reports: None Musculoskeletal Surgical History: Reports: None Oncologic Surgical History: Reports: None Dermatological Surgical History: Reports: None - SUBSTANCE USE Tobacco Use Status *Q: Never Tobacco User Recreational Drug Use History: No - HOME MEDS Home Medications: Home Meds Ascorbic Acid [Vitamin C] 2 tab PO DAILY 03/05/21 [History] Multivitamin 1 tab PO DAILY 03/05/21 [History] - CURRENT (IN HOUSE) MEDS Current Meds: Current Medications Albuterol (Albuterol 0.083% 2.5 Mg/3 Ml Neb Soln) 2.5 mg NEB ONETIME PRN PRN Reason: Wheezing Droperidol (Droperidol 5 Mg/2 Ml Sdv) 0.625 mg IVPUSH ONETIME PRN PRN Reason: Nausea/Vomiting Fentanyl (Fentanyl 100 Mcg/2 Ml Sdv) 50 mcg IVPUSH Q5M PRN PRN Reason: Pain (mild 1-3) Hydromorphone HCl (Hydromorphone 1 Mg/Ml Syringe) 1 mg IVPUSH Q10M PRN PRN Reason: Pain (moderate 4-6) Lactated Ringer's (Ringers, Lactated) 1,000 mls @ 125 mls/hr IV ASDIRECTED AGUSTÍN Last Admin: 03/11/21 09:55 Dose: 125 mls/hr Documented by: Metoclopramide HCl (Metoclopramide 10 Mg/2 Ml Sdv) 10 mg IVPUSH ONETIME PRN PRN Reason: Nausea/Vomiting Morphine Sulfate (Morphine 2 Mg/Ml Syringe) 2 mg IVPUSH Q10M PRN PRN Reason: Pain (severe 7-10) Naloxone HCl (Naloxone 0.4 Mg/Ml Sdv) 0.1 mg IVPUSH ASDIRECTED PRN PRN Reason: Respiratory Depression Ondansetron HCl (Ondansetron 4 Mg/2 Ml Sdv) 4 mg IVPUSH ONETIME PRN PRN Reason: Nausea/Vomiting Discontinued Medications Dexamethasone (Dexamethasone 4 Mg/Ml 5 Ml Mdv) Confirm Administered Dose 20 mg .ROUTE .STK-MED ONE Stop: 03/11/21 09:29 Fentanyl (Fentanyl 100 Mcg/2 Ml Sdv) Confirm Administered Dose 200 mcg .ROUTE .STK-MED ONE Stop: 03/11/21 09:28 Lidocaine (Lidocaine 2% 5 Ml Sdv) Confirm Administered Dose 5 ml .ROUTE .STK-MED ONE Stop: 03/11/21 09:29 Lidocaine (Lidocaine 2% 5 Ml Sdv) Confirm Administered Dose 5 ml .ROUTE .STK-MED ONE Stop: 03/11/21 09:41 Lidocaine HCl (Lidocaine 2% 100 Mg/5 Ml Syringe) Confirm Administered Dose 100 mg .ROUTE .STK-MED ONE Stop: 03/11/21 09:27 Midazolam HCl (Midazolam 1 Mg/Ml 2 Ml Sdv) Confirm Administered Dose 2 mg .ROUTE .STK-MED ONE Stop: 03/11/21 09:28 Ondansetron HCl (Ondansetron 4 Mg/2 Ml Sdv) Confirm Administered Dose 4 mg .ROUTE .STK-MED ONE Stop: 03/11/21 09:29 Propofol (Propofol 200 Mg/20 Ml Sdv) Confirm Administered Dose 400 mg .ROUTE .STK-MED ONE Stop: 03/11/21 09:27 Rocuronium Temple (Rocuronium Temple 50 Mg/5 Ml Syringe) Confirm Administered Dose 50 mg .ROUTE .STK-MED ONE Stop: 03/11/21 09:29 Scopolamine (Scopolamine 1.5 Mg Transdermal Patch) Confirm Administered Dose 1.5 mg .ROUTE .STK-MED ONE Stop: 03/11/21 09:22 Last Admin: 03/11/21 09:55 Dose: 1.5 mg Documented by: Sugammadex Sodium (Sugammadex Sodium 200 Mg/2 Ml Vial) Confirm Administered Dose 200 mg .ROUTE .STK-MED ONE Stop: 03/11/21 09:29
[2021-03-11] MEDS ORDERED: Lidocaine 1% 20 ML MDV ONE (10:31)
[2021-03-11] MEDS ORDERED: Neomycin/Polymyxin B Bladder Irrigation 1 ML Amp ONE (10:31)
[2021-03-11] MEDS ORDERED: Bupivacaine 25%/EPINEPHrine/PF 30 ML ONE (10:31)
[2021-03-11] MEDS ORDERED: Ketorolac 30 MG/ML SDV ONE (11:11)
--- NOTE | 2021-03-11 11:56 | PCM.OPNOTE ---
- General Post-Op/Procedure Note Date of Surgery/Procedure: 03/11/21 Operative Procedure(s): Labioplasty, perineoplasty, repair of levator muscles, sebaceous cyst excision Findings: Redundant perineal tissue/obstretrical scar--levator muscle separation/defect lower 1/3 or vagina Pre Op Diagnosis: Dyspareunia Post-Op Diagnosis: Dyspareunia. Sebaceous cyst Anesthesia Technique: General ET Tube Primary Surgeon: Nicole Alvarez Railcar Switchman: Chanelle Swanson Pathology: vulvar tissue Fluid Replacement, Intraop: 1,100 EBL in mLs: 20 Complications: none known Condition: Good Free Text/Narrative:: Dictation [id number]
--- NOTE | 2021-03-11 12:09 | PCM48HPAN ---
Post Anesthesia Note - EVALUATION WITHIN 48HRS OF ANESTHETIC Vital Signs in Normal Range: Yes Patient Participated in Evaluation: Yes Respiratory Function Stable: Yes Airway Patent: Yes Cardiovascular Function Stable: Yes Hydration Status Stable: Yes Pain Control Satisfactory: Yes Nausea and Vomiting Control Satisfactory: Yes Mental Status Recovered: Yes Vital Signs: Last Vital Signs Temp 97.5 F 03/11/21 09:58 Pulse 72 03/11/21 09:58 Resp 16 03/11/21 09:58 BP 127/61 03/11/21 09:58 Pulse Ox 96 03/11/21 09:58
--- NOTE | 2021-03-11 12:09 | PCM.POSTAN ---
POST ANESTHESIA ASSESSMENT - MENTAL STATUS Mental Status: Alert, Oriented - VITAL SIGNS Vital Signs: Last Vital Signs Temp 97.5 F 03/11/21 09:58 Pulse 72 03/11/21 09:58 Resp 16 03/11/21 09:58 BP 127/61 03/11/21 09:58 Pulse Ox 96 03/11/21 09:58 - RESPIRATORY Respiratory Status: Respiratory Rate WNL, Airway Patent, O2 Saturation Stable - CARDIOVASCULAR CV Status: Pulse Rate WNL, Blood Pressure Stable - GASTROINTESTINAL GI Status: No Symptoms - POST OP HYDRATION Hydration Status: Adequate & Stable
--- NOTE | 2021-03-11 12:39 | OR ---
SURGEON: Nicole Alvarez M.D. DATE OF PROCEDURE: 03/11/2021 PREOPERATIVE DIAGNOSIS: Dyspareunia. POSTOPERATIVE DIAGNOSIS: Dyspareunia with sebaceous cyst. PROCEDURES: Labiaplasty, perineoplasty, repair of levator muscle defect, and sebaceous cyst excision. PRIMARY SURGEON: Nicole Alvarez M.D. MACROECONOMICS PROFESSOR: MD Sky. ANESTHESIA: General endotracheal anesthesia. FLUIDS: 100 mL of crystalloid. ESTIMATED BLOOD LOSS: 20 mL. COMPLICATIONS: None. FINDINGS: Significant redundant perineal tissue with obstetrical scar and separation of levator muscles along the lower third of the vagina posterior wall. DISPOSITION: The patient to PACU, stable. PROCEDURE DETAILS: Rashmi is a 35-year-old female, G5, P4-0-1-4, who has had ongoing difficulties with dyspareunia since delivery of her last child, but has dealt with it throughout the deliveries of her children. She has had significant obstetrical tears, and more recently, the perineal has redundant obstetrical scar tissue that has formed that is being pulled upon with attempts at intimacy and causing quite a lot of discomfort. Options were discussed with her. They have completed childbearing, so at this time, she would like to proceed with surgical intervention for repair or remove this excess tissue. Risks of the procedure have been discussed and proper consent obtained. She was taken to the operating room where she underwent general endotracheal anesthesia, placed in modified dorsal lithotomy position, was prepped and draped in the usual sterile fashion. SCDs to the lower extremities. Bladder was drained. Received Ancef prophylactically. Time-out was performed. The region was inspected. The labia majora are symmetrical and without redundancy or asymmetry. The labia minora have quite a lot of asymmetry, more so on the right side than the left side with redundant tissue along the posterior perineum. Therefore, either edge of this was grasped with an Allis clamp and a triangular V wedge of tissue was now excised using a 15 blade scalpel. This resected much of the excess vulvar tissue that has formed. There was thicker tissue below this that is also now gently excised and the patient has a nice perineal body still left to work with. The region was hydrodissected with 0.25% Marcaine and epinephrine. This was followed along the posterior aspect of the midline vaginal mucosa as well. The vaginal mucosa was now incised along the midline in a sagittal fashion using Metzenbaum scissors, and with separation of this, was able to detect the separation of the levator muscles. Using a 2-0 Vicryl, was able to reapproximate the levator muscles with [id number] sutures. The vaginal mucosa was now reapproximated using 3-0 Vicryl in continuous running locked fashion. The transition stitch was performed at the level of the introitus and then the subcutaneous perineal tissue was reapproximated using 3-0 Vicryl in continuous running fashion. The subcuticular edges of the tissue were now reapproximated using 3-0 Vicryl. The labia on either side edges were reapproximated using 0 Caprosyn in continuous running fashion. This reapproximated the defect nicely. The obstetrical scar and redundant tissues now have been removed and restoring what appears to be normal anatomy. With removing the excess tissue, there was found to be a left-sided sebaceous cyst approximately at the 5 o'clock position. Therefore, this was simply excised using Metzenbaum scissors. The base was cauterized and reapproximated with 3-0 Vicryl at skin edges. Sponge, instrument, needle count was correct x2. The patient had tolerated the procedure well overall and ice pack was placed. The patient will go to PACU in stable condition. Specimen to Pathology. GIBSON / DIANA /[id number]
[2021-03-11] MEDS ORDERED: Acetaminophen 500 MG Tab PO ONE (14:00)
[2021-03-11] MEDS ORDERED: Benzocaine/Menthol 20%-0.5% Spray 78 GM Cannister TOP PRN (15:00)
[2021-03-11] MEDS ORDERED: Benzocaine/Menthol 20%-0.5% Spray 78 GM Cannister ONE (15:05)
[2021-03-11 15:49] VITALS: BP 105/53; PULSE 70
== END 2021-03-11 16:00 | disposition home or self-care (01) ==
LOC: MW.SDS 09:15 → EDSTATUS 12:15 → MW.SDS 16:00
PROVIDERS: ATTEND Obstetrics & Gynecology
DX: N90.69 Other specified hypertrophy of vulva (principal); S39.093A Other injury of muscle, fascia and tendon of pelvis, initial encounter; N94.10 Unspecified dyspareunia; N90.7 Vulvar cyst; Z79.899 Other long term (current) drug therapy; Z98.890 Other specified postprocedural states
CPT/HCPCS: 11420; 36415; 56620; 57283; 84703; 85027; A9270; J0131; J0690; J1100; J1170; J1885; J2250; J2405; J2704; J3010; J3490; J7120; 00904

== ENCOUNTER 2021-11-17 23:32 | Observation (INO) | payer BC ==
[2021-11-18] MEDS ORDERED: Sodium Chloride 0.9% 10 ML Syringe FLUSH PRN ×2 (00:02→08:01)
[2021-11-18] MEDS ORDERED: Sodium Chloride 0.9% 1,000 ML IV ONE (00:02)
[2021-11-18] MEDS ORDERED: Acetaminophen 500 MG Tab PO ONE (00:02)
[2021-11-18] MEDS ORDERED: Sodium Chloride 0.9% 2.5 ML Syringe FLUSH PRN ×2 (00:02→08:01)
[2021-11-18 00:37] LABS: POTASSIUM,K 3.7 mmol/L (3.5-5.1)
[2021-11-18] MEDS ORDERED: Iopamidol 755 MG/ML 500 ML Multipack Bottle IVPUSH ONE (01:42)
[2021-11-18] MEDS ORDERED: Albuterol/Ipratropium 3.0-0.5 MG/3 ML Neb Soln NEB ONE (02:59)
[2021-11-18] MEDS ORDERED: Albuterol/Ipratropium 3.0-0.5 MG/3 ML Neb Soln NEB PRN (03:43)
[2021-11-18] MEDS ORDERED: Acetaminophen 325 MG Tab PO PRN (03:43)
[2021-11-18] MEDS ORDERED: Ondansetron 4 MG/2 ML SDV IVPUSH PRN (03:46)
[2021-11-18 04:18] LABS: INFLUENZA A NAA NEGATIVE (NEGATIVE); INFLUENZA B NAA NEGATIVE (NEGATIVE)
[2021-11-18] MEDS: Lactated Ringers 1,000 ML IV SCH ×3 (04:55→23:13)
[2021-11-18] MEDS: Enoxaparin 40 MG/0.4 ML Syringe SUBCUT SCH (04:59)
[2021-11-18] MEDS: cefTRIAXone 1 GM in Sodium Chloride 0.9% 50 ML IV SCH (04:59)
[2021-11-18 06:51] LABS: CARBON DIOXIDE,CO2 26.6 mmol/L (21.0-32.0); POTASSIUM,K 3.5 mmol/L (3.5-5.1)
[2021-11-18] MEDS: Azithromycin 500 MG in Sodium Chloride 0.9% 250 ML IV SCH (09:48)
[2021-11-18] MEDS: Fluticasone NASAL Spray 16 GM Bottle NASBOTH SCH (09:49)
[2021-11-18] MEDS ORDERED: Codeine/guaiFENesin 10-100 MG/5 ML Syrup 5 ML Cup PO PRN (10:41)
[2021-11-18] MEDS: Albuterol/Ipratropium 3.0-0.5 MG/3 ML Neb Soln NEB SCH ×3 (11:21→23:12)
[2021-11-19] MEDS ORDERED: guaiFENesin 100 MG/5 ML Soln 5 ML UD Cup PO PRN (00:29)
[2021-11-19] MEDS: Enoxaparin 40 MG/0.4 ML Syringe SUBCUT SCH (03:14)
[2021-11-19] MEDS: cefTRIAXone 1 GM in Sodium Chloride 0.9% 50 ML IV SCH (03:14)
[2021-11-19 06:35] LABS: CARBON DIOXIDE,CO2 31.9 mmol/L (21.0-32.0); POTASSIUM,K 3.7 mmol/L (3.5-5.1)
[2021-11-19] MEDS: Lactated Ringers 1,000 ML IV SCH (06:50)
[2021-11-19 07:07] LABS: BORDETELLA PARAPERT IS1001 Not Detected (Not Detected)
[2021-11-19] MEDS: Albuterol/Ipratropium 3.0-0.5 MG/3 ML Neb Soln NEB SCH ×2 (07:31→14:10)
[2021-11-19] MEDS: Azithromycin 500 MG in Sodium Chloride 0.9% 250 ML IV SCH (08:40)
[2021-11-19] MEDS: Fluticasone NASAL Spray 16 GM Bottle NASBOTH SCH (08:40)
[2021-11-19] MEDS ORDERED: Escitalopram 10 MG Tab PO SCH (09:00)
[2021-11-19] MEDS ORDERED: predniSONE 20 MG Tab PO ONE (11:15)
[2021-11-19 12:11] VITALS: BP 115/66; PULSE 77
[2021-11-20] MEDS ORDERED: predniSONE 20 MG Tab PO ONE (10:31)
== END 2021-11-19 14:10 | disposition home or self-care (01) ==
LOC: MW.ED 23:32 → MW.MS 11-18 03:02
PROVIDERS: ADMIT Student in an Organized Health Care Education/Training Program; ATTEND Student in an Organized Health Care Education/Training Program
DX: J96.01 Acute respiratory failure with hypoxia (principal); J06.9 Acute upper respiratory infection, unspecified; N30.00 Acute cystitis without hematuria; J98.11 Atelectasis; I10 Essential (primary) hypertension; M19.90 Unspecified osteoarthritis, unspecified site; E66.9 Obesity, unspecified; F41.9 Anxiety disorder, unspecified; Z98.890 Other specified postprocedural states; Z20.822 Contact with and (suspected) exposure to COVID-19; Z79.51 Long term (current) use of inhaled steroids; Z79.2 Long term (current) use of antibiotics; Z79.891 Long term (current) use of opiate analgesic; Z79.899 Other long term (current) drug therapy
CPT/HCPCS: 36415; 71045; 71046; 71275; 80048; 80053; 81001; 83605; 83735; 83880; 84100; 84484; 84703; 85025; 87040; 87086; 87486; 87581; 87633; 87635; 87798; 93005; 93306; 94640; 96361; 96365; 96366; 96367; 96372; 96376; 99285; A9270; G0378; J0456; J0696; J1650; J3490; J7030; J7050; J7120; Q9967; 87088; 93010; 96360; 99217; 99219; 99284; J7620-GY; U0002